=== PATIENT | female | born 1995 | race Caucasian/White ===

== ENCOUNTER 2017-03-28 02:11 | Emergency (ER) | payer OTHER | END 2017-03-28 02:57 | disposition home or self-care (01) | LOC: ERS 02:11 | DX: Z77.21 Contact with and (suspected) exposure to potentially hazardous body fluids (principal) | CPT/HCPCS: 86706; 86803; 87389; 99283 ==

== ENCOUNTER 2017-07-27 23:04 | Emergency (ER) | payer OTHER ==
[2017-07-27] MEDS ORDERED: Ketorolac Tromethamine 30 MG/ML VIAL ONE (23:25)
[2017-07-27] MEDS ORDERED: Ondansetron HCl/PF 4 MG/2 ML Vial ONE (23:25)
[2017-07-27 23:27] LABS: Bilirubin Negative (Negative); Blood, Urine Trace (Negative); Clarity Slightly Cloudy (Clear); Glucose, Urine (Dipstick) Negative (Negative); Leukocyte Small (Negative); Nitrite Negative (Negative); Protein, Urine (Dipstick) 30 mg/dL (Neg-Trace); Specific Gravity, Urine 1.015 (1.005-1.030); Urobilinogen 0.2 mg/dL (0.2-1.0); pH, Urine 7.5 (5.0-9.0)
[2017-07-27 23:39] LABS: Bacteria/HPF Rare-Few HPF (None Seen); Hyaline Casts/LPF NONE SEEN LPF (0-3 Hyaline); RBC/HPF 0-3 HPF (0-3); Squamous Epithelial 0-3 HPF (0-3)
[2017-07-27 23:40] LABS: #Basophils 0.1 thou/uL (0.0-0.2); #Eosinphils 0.1 thou/uL (0.0-0.7); #Lymphocytes 3.4 thou/uL (1.20-3.40); #Monocytes 0.7 thou/uL (0.11-0.59); #Neutrophils 4.8 thou/uL (1.40-6.50); %Eosinophils 0.8 % (0.0-10.0); %Lymphocytes 37.3 % (21.0-51.0); Hemoglobin 14.4 g/dL (12.0-16.0); Mean Corpuscular HGB CONC 33.8 g/dL (32.0-36.0); Mean Corpuscular Hemoglobin 29.4 pg (27.0-31.0); Mean Corpuscular Volume 86.9 fl (81.0-99.0); Mean Platelet Volume 11.2 fL (7.4-10.4); Platelet Count 244 thou/uL (130-400); RBC Distribution Width 10.7 % (11.5-14.5); Red Blood Cell (RBC) Count 4.89 mill/uL (4.20-5.40); White Blood Cell (WBC) Count 9.1 thou/uL (4.8-10.8)
[2017-07-27 23:52] LABS: BHCG - Serum Negative (NEGATIVE); Pregs Control Background? CLEAR/WHITE (CLR/WHITE); Pregs Control Bar Appear? YES (CONTROL BAR)
[2017-07-27 23:54] LABS: ALT (SGPT) 65 U/L (8-55); AST (SGOT) 36 U/L (5-34); Albumin 4.9 g/dL (3.5-5.0); Alkaline Phosphatase 69 U/L (40-150); Anion Gap 16 mmol/L (10-20); BUN (Urea Nitrogen) 11 mg/dL (7.0-18.7); Bilirubin, Total 0.4 mg/dL (0.2-1.2); Calc. Creatinine Clearance 0 mL/min (70-130); Calcium 10.1 mg/dL (7.8-10.44); Carbon Dioxide 23 mmol/L (22-29); Chloride 105 mmol/L (98-107); Estimated GFR-MDRD 84; Globulin 3.6 g/dL (2.4-3.5); Glucose 75 mg/dL (70-105); Potassium 3.6 mmol/L (3.5-5.1); Protein, Total 8.5 g/dL (6.0-8.3); Sodium 140 mmol/L (136-145)
--- NOTE | 2017-07-28 06:54 | CT ---
CT ABDOMEN AND PELVIS: 07/28/2017 HISTORY: Sudden onset of severe right-sided flank pain with nausea. COMPARISON: None. TECHNIQUE: Serial axial CT imaging at 5 mm intervals, from the lung bases through the pubic symphysis, without c ontrast. Coronal reformatted imaging obtained. FINDINGS: The lack of contrast media limits assessment of the abdominal viscera, bowel, and vascular structures , and for lymphadenopathy. The imaged lung bases are unremarkable. No free intraperitoneal air noted. The liver, gallbladder, spleen, pancreas, adrenal glands, and kidneys appear unremarkable. No nephro lithiasis or hydronephrosis noted on either side. No calcification noted along the expected course o f either ureter. There is a calcification on axial image 74, within the right hemipelvis, punctate i n nature, presumably vascular in nature, as there is no evidence for hydronephrosis or hydroureter. Evaluation of the bowel without oral contrast media demonstrates no evidence for inflammatory change or obstruction. The appendix appears within normal limits. Osseous structures demonstrate no acute findings. IMPRESSION: No nephrolithiasis or evidence of obstructive uropathy. POS: [facility]
== END 2017-07-28 00:54 | disposition home or self-care (01) ==
LOC: SCSER 23:04
DX: R10.9 Unspecified abdominal pain (principal); R74.8 Abnormal levels of other serum enzymes; Z87.891 Personal history of nicotine dependence
CPT/HCPCS: 74176; 80053; 81003; 81015; 84703; 85025; 96361; 96374; 96375; J1885; J2405

== ENCOUNTER 2017-08-03 10:34 | Outpatient (CLI) | payer OTHER ==
--- NOTE | 2017-08-03 14:19 | ULT ---
ULTRASOUND GALLBLADDER RIGHT UPPER QUADRANT: HISTORY: Pain. COMPARISON: CT stone protocol 07/28/17. FINDINGS: Visualized pancreas is unremarkable. Hepatic echotexture is normal. The liver measures 16.1 cm in length. The portal vein is patent with antegrade flow. The gallbladder is unremarkable. Common bile duct measures less than 3 mm. The right kidney measures 9.1 x 4 x 4.3 cm without mass, hydronephrosis, or abnormal calcifications. IMPRESSION: Trace sludge in the gallbladder. No cholelithiasis or evidence of cholecystitis. POS: [facility]
== END 2017-08-03 10:35 | disposition home or self-care (01) ==
LOC: ULT 10:34
PROVIDERS: ATTEND Physician Assistant
DX: R10.9 Unspecified abdominal pain (principal)
CPT/HCPCS: 76705

== ENCOUNTER 2017-08-04 12:34 | Outpatient (CLI) | payer OTHER | END 2017-08-04 12:35 | disposition home or self-care (01) | LOC: BICCT 12:34 | PROVIDERS: ATTEND Surgery | DX: R10.11 Right upper quadrant pain (principal) | CPT/HCPCS: 74176 ==

== ENCOUNTER 2018-02-02 09:58 | Inpatient (IN) | payer OTHER ==
[2018-02-02 11:13] VITALS: BMI 29.0
--- NOTE | 2018-02-02 11:36 | PDOC.LDHP ---
Labor and Delivery H&P Chief complaint: abdominal pain HPI: 23 y/o at 29w5d, patient of Dr. Terri Rubio, presents with right sided low back and flank pain since yesterday. Thought it was round ligament pain but has gotten worse today and was unable to stand up. Denies VB, LOF, ctx, or decreased FM. Works as ER nurse. ROS neg for HEENT, cv, pulm, gi, gu, neuro, psych, skin, musculoskeletal, or constitutional sx other than mentioned above. OB History Details: 3 prior SABs Current complications: none Past Medical History: Protein S deficiency Current medications: pre- vitamins, other (lovenox) Previous surgical history: none Allergies/Adverse Reactions: Allergies Allergy/AdvReac Type Severity Reaction Status Date / Time latex Allergy Mild Rash Verified 02/02/18 11:00 - Physical Exam Vital signs reviewed and normal: yes General: NAD, other (appears uncomfortable) Lungs: nonlabored breathing Abdomen: other (gravid, R CVA tenderness) FHT: category 1 (130s, mod variability, + accels, no decels) [place] contractions every: none - Assessment 23 y/o at 29w5d with likely pyelonephritis. Renal ultrasound pending. status reassuring with reactive NST. - Plan Plan: admit to L&D -: Admit for antibiotics. Requesting IV tylenol for pain. Dr. Rubio notified. Will follow up results of renal ultrasound.
[2018-02-02] MEDS ORDERED: Ondansetron HCl/PF 4 MG in Sodium Chloride 0.9% 50 ML IVPB PRN (11:37)
[2018-02-02] MEDS ORDERED: Lactated Ringer's 1,000 ML IV SCH ×2 (11:45→12:30)
[2018-02-02 11:46] LABS: Bilirubin Negative (Negative); Blood, Urine Trace (Negative); Clarity CLOUDY (Clear); Glucose, Urine (Dipstick) Negative (Negative); Leukocyte Large (Negative); Nitrite Negative (Negative); Protein, Urine (Dipstick) Trace mg/dL (Neg-Trace); Urobilinogen 0.2 mg/dL (0.2-1.0); pH, Urine 7.5 (5.0-9.0)
[2018-02-02 11:48] LABS: Bacteria/HPF 1+ HPF (None Seen); Pathc Cast-AUWi Flag 2.32 (0-2.49); RBC/HPF 0-3 HPF (0-3); Squamous Epithelial 0-3 HPF (0-3)
[2018-02-02 11:57] LABS: Hyaline Casts/LPF 0-3 HYALINE CAST LPF (0-3 Hyaline)
[2018-02-02] MEDS ORDERED: Ondansetron HCl/PF 4 MG/2 ML Vial ONE (12:11)
[2018-02-02] MEDS ORDERED: Ondansetron ODT 4 MG TAB PO PRN (12:17)
[2018-02-02 12:18] LABS: #Lymphocytes 1.5 thou/uL (1.20-3.40); #Monocytes 0.9 thou/uL (0.11-0.59); #Neutrophils 10.4 thou/uL (1.40-6.50); %Basophils 0.1 % (0.0-1.0); %Eosinophils 0.3 % (0.0-10.0); %Lymphocytes 11.9 % (21.0-51.0); %Monocytes 6.8 % (0.0-10.0); %Neutrophils 80.8 % (42.0-75.0); Hemoglobin 11.8 g/dL (12.0-16.0); Mean Corpuscular HGB CONC 35.7 g/dL (32.0-36.0); Mean Corpuscular Hemoglobin 32.2 pg (27.0-31.0); Mean Corpuscular Volume 90.2 fL (78.0-98.0); Mean Platelet Volume 9.6 fL (7.4-10.4); Platelet Count 178 thou/uL (130-400); RBC Distribution Width 11.1 % (11.5-14.5); Red Blood Cell (RBC) Count 3.68 mill/uL (4.20-5.40); White Blood Cell (WBC) Count 12.9 thou/uL (4.8-10.8)
[2018-02-02] MEDS ORDERED: Promethazine HCl 25 MG/ML VIAL IM PRN (12:27)
[2018-02-02] MEDS ORDERED: Zolpidem Tartrate 5 MG TAB PO PRN (12:27)
[2018-02-02] MEDS ORDERED: Acetaminophen 500 MG TAB PO PRN (12:27)
[2018-02-02] MEDS ORDERED: Ondansetron HCl/PF 4 MG/2 ML Vial IVP PRN (12:27)
[2018-02-02] MEDS ORDERED: Butorphanol Tartrate 1 MG/ML VIAL SLOW IVP PRN (12:27)
[2018-02-02 12:43] LABS: ALT (SGPT) 24 U/L (8-55); AST (SGOT) 19 U/L (5-34); Albumin 3.5 g/dL (3.5-5.0); Alkaline Phosphatase 89 U/L (40-150); Anion Gap 11 mmol/L (10-20); BUN (Urea Nitrogen) 6 mg/dL (7.0-18.7); Bilirubin, Total 0.3 mg/dL (0.2-1.2); Calc. Creatinine Clearance 176 mL/min (70-130); Calcium 8.6 mg/dL (7.8-10.44); Carbon Dioxide 22 mmol/L (22-29); Chloride 107 mmol/L (98-107); Estimated GFR-MDRD Greater than 90; Glucose 75 mg/dL (70-105); Potassium 3.7 mmol/L (3.5-5.1); Protein, Total 6.5 g/dL (6.0-8.3); Sodium 136 mmol/L (136-145)
[2018-02-02] MEDS: Sodium Chloride 0.9% 1,000 ML IV SCH ×2 (13:24→20:28)
--- NOTE | 2018-02-02 13:44 | ULT ---
RENAL ULTRASOUND: Indication: Concern for renal stones at 29 weeks . Technique: Grayscale and color doppler imaging obtained of the kidneys and bladder. FINDINGS: The right kidney measures 10.6 x 5.7 x 4.6 cm. Left kidney measures 11.8 x 5.9 x 5 cm. No focal petrona l lesion or hydronephrosis is evident. Pre void bladder volume is 29.2 cc. Incidental note is made an intrauterine gestation in vertex prese ntation. IMPRESSION: No focal renal lesion or hydronephrosis demonstrated. POS: [facility]
[2018-02-02] MEDS ORDERED: cefTRIAXone\\ROCEPHIN 2 GM in Sodium Chloride 0.9% 100 ML IVPB SCH (14:00)
[2018-02-02] MEDS ORDERED: Acetaminophen 1,000 MG in Premix Bag 1 BAG IVPB SCH ×2 (14:15→18:00)
[2018-02-02] MEDS: Acetaminophen 1,000 MG in Premix Bag 1 BAG IVPB SCH (20:23)
[2018-02-03] MEDS: Acetaminophen 1,000 MG in Premix Bag 1 BAG IVPB SCH ×2 (01:57→08:32)
[2018-02-03] MEDS: Sodium Chloride 0.9% 1,000 ML IV SCH (04:32)
[2018-02-03] MEDS ORDERED: Enoxaparin Sodium 30 MG/0.3 ML SYRINGE SC SCH (09:00)
[2018-02-03] MEDS ORDERED: cefTRIAXone\\ROCEPHIN 2 GM in Sodium Chloride 0.9% 100 ML IVPB SCH (12:00)
[2018-02-03 12:03] VITALS: BP 103/57; TEMP 99
--- NOTE | 2018-02-04 03:53 | DIS ---
DATE OF ADMISSION: 02/02/2018 DATE OF DISCHARGE: 02/03/2018 DISCHARGE DIAGNOSES: 1. A 29-week 6-day intrauterine . 2. Pyelonephritis. HOSPITAL COURSE: Jess is a 23-year-old G4, P0 with a history of protein S deficiency and multiple miscarriages who presented to labor and delivery complaining of severe right flank pain, but states that she had had no fever, but felt very achy. Deny any dysuria, blood in her urine, noted that she had some marked right CVA tenderness along with a urinalysis consistent with urinary tract infection, most likely pyelonephritis and was subsequently admitted to labor and delivery for IV antibiotics an d observation. The patient was subsequently transferred to the pediatric floor. She was started on IV Rocephin. The following morning, she was feeling much better. She remained afebrile throughout h er hospital stay. CBC revealed a white count of 12.9 with hemoglobin 11.8, platelet count normal at 178. She was tolerating a regular diet, markedly improved the following day, requesting to be discha rged home. Urine culture was pending at this time. She will be discharged home on Macrobid one p.o. b.i.d. x10 days, then daily throughout the duration of her . She will continue her Lovenox , aspirin 81 mg and follow up in my office the following week.
== END 2018-02-03 13:09 | disposition home or self-care (01) | DRG 781 ==
LOC: L&D/OP 09:58 → ERS 09:58 → EDSTATUS 10:14 → L&D 12:57 → 3SE 16:28
PROVIDERS: ADMIT Family Medicine; ATTEND Family Medicine
DX: O23.03 Infections of kidney in pregnancy, third trimester (principal); Z3A.28 28 weeks gestation of pregnancy
CPT/HCPCS: 36415; 59025; 76770; 80053; 81001; 85025; 87077; 87086; 87186; 99285; J0131; J0696; J1650; J2405; J7050

== ENCOUNTER 2018-03-29 15:52 | Day surgery (SDC) | payer OTHER ==
[2018-03-29 16:22] VITALS: BP 127/84; TEMP 98.1; BMI 30.7
--- NOTE | 2018-03-29 18:38 | PRG ---
DATE OF SERVICE: 03/29/2018 PRESENTING COMPLAINT: Abdominal pain, 37 weeks' gestation. HISTORY OF PRESENT ILLNESS: Ms. Rosales is a 23-year-old 4, para 0, AB 3, who is at 37 weeks' gestation with EDC of 04/15/2017. She sees Dr. Terri Rubio. She is an ED nurse at [employer] and h ad the development of midline lower abdominal pain after letting a 300-pound patient down slowly to t he ground after he lost his balance. She denies abdominal trauma. She denies vaginal bleeding. She reports an active fetus. She denies rupture of membranes. [facility] HISTORY: SAB, no D&C. Negative GC, chlamydia. Negative HIV. Negative RPR. Rubella imm une. Blood type B positive, antibody negative. Pap negative. Group B strep results not in record. PAST MEDICAL HISTORY: None. PAST SURGICAL HISTORY: None. ALLERGIES: Denies. MEDICATIONS: vitamins. SOCIAL HISTORY: Denies tobacco, alcohol, or drug use. REVIEW OF SYSTEMS: Noncontributory. PHYSICAL EXAMINATION: GENERAL: White female in no acute distress. VITAL SIGNS: Blood pressure 132/85, pulse 85, respirations 18. HEENT: Within normal limits. LUNGS: Clear to auscultation bilaterally. HEART: Regular rhythm. PELVIC: Soft and nontender. FHTs are 130s to 140s. No CVA tenderness is noted. ABDOMEN: She has mild discomfort in the midline, but no point tenderness. No irregularities noted. EXTREMITIES: Without clubbing, cyanosis, or edema. PELVIC: Exam deferred. The patient reports that cervical exam was at last visit. monit oring was carried out for greater than 20 minutes. Occasional uterine irritability was noted with po sitive accelerations, no decels. Category 1 tracing. IMPRESSION: Discomforts of exacerbated by heavy lifting with ER patient that fell, no evid ence of trauma or abruption. PLAN: Discharge to home. Work release for the next 3-4 days and keep scheduled followup in 2 days w yessi Rubio. ER precautions.
== END 2018-03-29 16:30 | disposition home health service (06) ==
LOC: L&D/OP 15:52
PROVIDERS: ATTEND Family Medicine
DX: O99.89 Other specified diseases and conditions complicating pregnancy, childbirth and the puerperium (principal); R10.33 Periumbilical pain; Z3A.37 37 weeks gestation of pregnancy; Z79.899 Other long term (current) drug therapy; X50.0XXA Overexertion from strenuous movement or load, initial encounter; Y92.239 Unspecified place in hospital as the place of occurrence of the external cause; Y99.0 Civilian activity done for income or pay
CPT/HCPCS: 99282

== ENCOUNTER 2018-04-03 09:25 | Inpatient (IN) | payer OTHER ==
[2018-04-03 10:08] VITALS: BMI 30.7
[2018-04-03] MEDS: Lactated Ringer's 1,000 ML IV SCH ×4 (10:20→16:13)
[2018-04-03 10:39] LABS: Amnisure Test RUPTURE DETECTED (No Rupture)
[2018-04-03 10:40] LABS: Amnisure Internal Control QC ACCEPTABLE (ACCEPTABLE)
[2018-04-03] MEDS ORDERED: Bupivacaine 0.25% HCL 30 ML VIAL ONE (11:11)
[2018-04-03] MEDS ORDERED: Lidocaine 2% MPF 10 ML AMP (For Epidural Use) ONE (11:11)
[2018-04-03 12:01] LABS: Hemoglobin 12.2 g/dL (12.0-16.0); Mean Corpuscular Hemoglobin 29.5 pg (27.0-31.0); Mean Corpuscular Volume 89.6 fL (78.0-98.0); Mean Platelet Volume 11.7 fL (7.4-10.4); Platelet Count 144 thou/uL (130-400); Red Blood Cell (RBC) Count 4.12 mill/uL (4.20-5.40); White Blood Cell (WBC) Count 8.7 thou/uL (4.8-10.8)
[2018-04-03] MEDS ORDERED: Misoprostol 200 MCG TAB RC PRN (12:15)
[2018-04-03] MEDS ORDERED: NS w/ Oxytocin 10 units 500 ML IV SCH ×2 (12:15)
[2018-04-03] MEDS ORDERED: HYDROcodone/Acetaminophen 5/325 mg Tablet PO PRN ×2 (12:15)
[2018-04-03] MEDS ORDERED: Methylergonovine 0.2 MG/ML VIAL IM PRN (12:15)
[2018-04-03] MEDS ORDERED: Lidocaine 1% (PF) 30 ML VIAL SC PRN (12:15)
[2018-04-03] MEDS ORDERED: Diphenoxylate HCl/Atropine Tablet PO PRN (12:15)
[2018-04-03] MEDS ORDERED: Carboprost 250 MCG/ML AMP IM PRN (12:15)
[2018-04-03] MEDS ORDERED: Ibuprofen 800 MG TAB PO PRN (12:15)
[2018-04-03 12:40] LABS: HBSAg Index 0.19 S/CO (0-0.99); Hep B Surf Ag Non-Reactive S/CO (NonReactive); Syphilis Antibody Nonreactive (Nonreactive); Syphilis Antibody Index 0.04 S/CO (<1.00 Non-Reactive)
[2018-04-03] MEDS ORDERED: Ondansetron PF 4 MG/2 ML Vial ONE (12:58)
[2018-04-03] MEDS ORDERED: Fentanyl 4 mcg/Bup 0.1% Cadd 100 ML ONE ×2 (13:13→18:54)
[2018-04-03] MEDS ORDERED: Fentanyl 100 MCG/2 ML VIAL ONE (13:35)
[2018-04-03] MEDS ORDERED: Ondansetron PF 4 MG/2 ML Vial SLOW IVP PRN (14:39)
[2018-04-03] MEDS: NS / Oxytocin 40 units/1000ml 1,000 ML IV SCH (22:48)
[2018-04-04] MEDS ORDERED: Acetaminophen 1,000 MG in Premix Bag 1 BAG IVPB SCH (00:15)
[2018-04-04] MEDS ORDERED: Cyclobenzaprine 10 MG TAB PO SCH (00:15)
[2018-04-04] MEDS: NS / Oxytocin 40 units/1000ml 1,000 ML IV SCH (00:50)
[2018-04-04] MEDS ORDERED: Bisacodyl 10 MG SUPP PR PRN (02:17)
[2018-04-04] MEDS ORDERED: Lanolin Ointment 7 GM TUBE TOP PRN (02:17)
[2018-04-04] MEDS ORDERED: NS / Oxytocin 40 units/1000ml 1,000 ML IV SCH (02:17)
[2018-04-04] MEDS ORDERED: HYDROcodone/Acetaminophen 5/325 mg Tablet PO PRN (02:17)
[2018-04-04] MEDS ORDERED: Preparation H Ointment 28 GM TUBE PR PRN (02:17)
[2018-04-04] MEDS ORDERED: Milk Of Magnesia 30 ML UDCUP PO PRN (02:17)
[2018-04-04] MEDS ORDERED: Benzocaine/Menthol 20-0.5% 60 ML CAN TOP PRN (03:05)
[2018-04-04] MEDS: Ibuprofen 800 MG TAB PO SCH ×2 (05:46→14:01)
[2018-04-04 06:26] LABS: Hemoglobin 11.4 g/dL (12.0-16.0); Mean Corpuscular HGB CONC 33.4 g/dL (32.0-36.0); Mean Corpuscular Hemoglobin 30.1 pg (27.0-31.0); Mean Corpuscular Volume 90.2 fL (78.0-98.0); Mean Platelet Volume 11.6 fL (7.4-10.4); Platelet Count 129 thou/uL (130-400)
[2018-04-04] MEDS: Ferrous Sulfate 325 MG TAB PO SCH ×2 (09:03→17:13)
[2018-04-04] MEDS: Docusate Calcium (SURFAK) 240 MG CAP PO SCH ×2 (09:04→22:55)
[2018-04-04] MEDS: Prenatal Vitamin 1 TAB PO SCH (09:04)
--- NOTE | 2018-04-04 10:37 | PDOC.PP ---
Post Progress Note Post Day #: 1 Subjective: No c/o. Lochia normal. OK, baby is sleepy. PO intake tolerated: yes Flatus: yes Ambulation: yes Vital Signs (12 hours) Temp Pulse Resp BP Pulse Ox 04/04/18 08:00 97.9 F 80 18 103/65 97 04/04/18 06:00 98.0 F 62 16 110/59 L 04/04/18 04:00 98.3 F 58 L 16 110/58 L 04/04/18 03:05 98.4 F 65 18 103/60 04/04/18 02:00 98.4 F 65 18 107/61 Weight Weight 190 lb - Physical Examination General: NAD Cardiovascular: no m/r/g, RRR Respiratory: clear to auscultation bilaterally, non-labored breathing Abdominal: + bowel sounds, lochia, no distention, appropriately TTP Result Diagrams: 04/04/18 06:03 Additional Labs: Post Labs Blood Type B POSITIVE 04/03/18 11:49 Hep Bs Antigen Non-Reactive S/CO (NonReactive) 04/03/18 11:49 (1) Vaginal delivery Code(s): O80 - ENCOUNTER FOR FULL-TERM UNCOMPLICATED DELIVERY Status: Acute (2) Protein S deficiency complicating Code(s): O99.119 - OTH DIS OF BLD/BLD-FORM ORG/IMMUN MECHNSM COMP PREG,UNSP TRI ; D68.59 - OTHER PRIMARY THROMBOPHILIA Status: Acute - Assessment/Plan Routine PP care Continue SCD's for Protein S deficiency Resume Lovenox and ASA at 24 hours after delivery (2300 tonight) D/C home likely tomorrow
--- NOTE | 2018-04-04 15:47 | DN ---
DATE OF DELIVERY: 04/03/2018 PREOPERATIVE DIAGNOSES: Term intrauterine with spontaneous rupture of membranes at home, i n active labor. History of protein S deficiency, on Lovenox throughout . POSTOPERATIVE DIAGNOSES: Term intrauterine with spontaneous rupture of membranes at home, in active labor. History of protein S deficiency, on Lovenox throughout as well as a first -degree perineal laceration. PROCEDURE PERFORMED: Normal spontaneous vaginal delivery and laceration repair. SURGEON: Rosita Angela M.D. ANESTHESIA: Epidural. ESTIMATED BLOOD LOSS: 500 mL. BRIEF DELIVERY SUMMARY: This is a 23-year-old G3, P0 with a history of protein S deficiency, who pre sented in active labor with spontaneous rupture of membranes at home with clear fluid. She progresse d well to complete and pushing. She delivered a live male , head OA, mouth and nares were bulb suctioned at the perineum. There was no nuchal cord. Shoulders and body easily followed and the in manju was placed on mother's abdomen. The infant Apgars were 8 at 1 minute and 9 at 5 minutes. The u mbilical cord was doubly clamped and cut and cord blood was sent for analysis. Placenta delivered sp ontaneously and intact with a 3-vessel umbilical cord. The uterine fundus was boggy following evacua tion of the placenta, so the patient was given Pitocin in her IV and 800 mcg of Cytotec rectally with good response in uterine tone and bleeding. There was a first-degree perineal laceration, which was repaired in standard running fashion under epidural anesthesia with 2-0 Vicryl suture with excellent hemostasis. Mom and baby were left with the nurse in excellent condition attempting to breastfeed.
[2018-04-04] MEDS ORDERED: Enoxaparin Sodium 40 MG/0.4 ML SYRINGE SC SCH (23:00)
[2018-04-04] MEDS ORDERED: Aspirin 81 mg Enteric Coated Tablet PO SCH (23:00)
[2018-04-05] MEDS: Ibuprofen 800 MG TAB PO SCH ×3 (00:25→09:15)
[2018-04-05] MEDS: Ferrous Sulfate 325 MG TAB PO SCH (07:11)
[2018-04-05 08:26] VITALS: BP 106/72; TEMP 98.1
[2018-04-05] MEDS ORDERED: Aspirin 81 mg Enteric Coated Tablet PO SCH (09:00)
[2018-04-05] MEDS: Docusate Calcium (SURFAK) 240 MG CAP PO SCH (09:15)
[2018-04-05] MEDS: Prenatal Vitamin 1 TAB PO SCH (09:15)
== END 2018-04-05 13:10 | disposition home or self-care (01) | DRG 806 ==
LOC: L&D/OP 09:25 → L&D 11:37 → 3SW 04-04 01:54
PROVIDERS: ADMIT Family Medicine; ATTEND Family Medicine
PROC: 10E0XZZ Delivery of Products of Conception, External Approach (ICD-10-PCS; principal; 2018-04-03)
PROC: 0HQ9XZZ Repair Perineum Skin, External Approach (ICD-10-PCS; 2018-04-03)
DX: O99.12 Other diseases of the blood and blood-forming organs and certain disorders involving the immune mechanism complicating childbirth (principal); D68.59 Other primary thrombophilia; Z37.0 Single live birth; Z3A.38 38 weeks gestation of pregnancy; O70.0 First degree perineal laceration during delivery
CPT/HCPCS: 36415; 51702; 84112; 85027; 86780; 86850; 86900; 86901; 87340; 99285; J0131; J1650; J2001; J2210; J2405; J3010; J3490; S0020

== ENCOUNTER 2018-04-09 23:54 | Emergency (ER) | payer OTHER ==
[2018-04-10] MEDS ORDERED: Lidocaine 1% PF 5 ML VIAL ONE (00:45)
[2018-04-10] MEDS ORDERED: cefTRIAXone\\ROCEPHIN 1 GM VIAL ONE (00:45)
[2018-04-10] MEDS ORDERED: cefTRIAXone\\ROCEPHIN 2 GM VIAL ONE (01:33)
[2018-04-10] MEDS ORDERED: Sodium Chloride 0.9% 100 ML ONE (01:33)
[2018-04-10 01:42] LABS: #Eosinphils 0.1 thou/uL (0.0-0.7); #Lymphocytes 1.2 thou/uL (1.20-3.40); #Neutrophils 17.1 thou/uL (1.40-6.50); %Basophils 0.1 % (0.0-1.0); %Eosinophils 0.4 % (0.0-10.0); %Lymphocytes 5.9 % (21.0-51.0); %Monocytes 5.3 % (0.0-10.0); %Neutrophils 88.3 % (42.0-75.0); Hemoglobin 12.2 g/dL (12.0-16.0); Mean Corpuscular HGB CONC 32.7 g/dL (32.0-36.0); Mean Corpuscular Hemoglobin 29.7 pg (27.0-31.0); Mean Corpuscular Volume 90.9 fL (78.0-98.0); Mean Platelet Volume 8.9 fL (7.4-10.4); Platelet Count 239 thou/uL (130-400); White Blood Cell (WBC) Count 19.3 thou/uL (4.8-10.8)
[2018-04-10 02:01] LABS: ALT (SGPT) 46 U/L (8-55); AST (SGOT) 28 U/L (5-34); Albumin 3.8 g/dL (3.5-5.0); Alkaline Phosphatase 107 U/L (40-150); Anion Gap 12 mmol/L (10-20); BUN (Urea Nitrogen) 12 mg/dL (7.0-18.7); Bilirubin, Total 0.3 mg/dL (0.2-1.2); Calc. Creatinine Clearance 0 mL/min (70-130); Calcium 8.9 mg/dL (7.8-10.44); Carbon Dioxide 20 mmol/L (22-29); Chloride 106 mmol/L (98-107); Estimated GFR-MDRD 89; Globulin 3.5 g/dL (2.4-3.5); Glucose 103 mg/dL (70-105); Potassium 3.1 mmol/L (3.5-5.1); Protein, Total 7.3 g/dL (6.0-8.3); Sodium 135 mmol/L (136-145)
[2018-04-10 02:21] LABS: Bilirubin Negative (Negative); Blood, Urine Large (Negative); Clarity CLEAR (Clear); Glucose, Urine (Dipstick) Negative (Negative); Leukocyte Small (Negative); Nitrite Negative (Negative); Protein, Urine (Dipstick) Negative (Neg-Trace); Specific Gravity, Urine 1.003 (1.002-1.036); Urobilinogen 0.2 mg/dL (0.2-1.0); pH, Urine 6.5 (5.0-9.0)
[2018-04-10 02:24] LABS: Bacteria/HPF None Seen HPF (None Seen); Hyaline Casts/LPF 0-3 HYALINE CAST LPF (0-3 Hyaline); Squamous Epithelial 0-3 HPF (0-3); WBC/HPF 0-3 HPF (0-3)
== END 2018-04-10 02:54 | disposition home or self-care (01) ==
LOC: ERS 23:54
DX: N61.0 Mastitis without abscess (principal); D68.59 Other primary thrombophilia; Z87.891 Personal history of nicotine dependence; Z79.82 Long term (current) use of aspirin
CPT/HCPCS: 80053; 81003; 81015; 85025; 87077; 87086; 96365; J0696; J2001; J7050